=== PATIENT | male | born 1950 | race Caucasian/White ===

== ENCOUNTER 2017-11-05 07:39 | Outpatient (CLI) | payer MEDICARE, OTHER ==
[2017-11-05] MEDS ORDERED: Iopamidol 370 76% 100 ML VIAL ONE (12:03)
--- NOTE | 2017-11-08 17:19 | CT ---
CTA HEART WITH 3D POST PROCESSING: HISTORY: Chest pain. IV CONTRAST: Isovue-370 90 mL. FINDINGS: No coronary artery calcifications are seen. The total calcium score, using the AJ-130 method, is 0. There is good flow without significant stenosis in the left main artery, LAD artery, diagonals, LCX a rtery, obtuse marginal artery, and RCA. Quantitative left ventricular function measurements are as follows: EJECTION FRACTION: 65%. DIASTOLIC VOLUME: 137 mL. END-SYSTOLIC VOLUME: 48 mL. STROKE VOLUME: 89 mL per minute. CARDIAC OUTPUT: 4.6 L per minute. MYOCARDIAL MASS: 164 g. There is normal left ventricular wall motion. The visualized lung valentino are clear. No pleural or p ericardial effusions are seen. There is no evidence of aneurysmal dilatation of the thoracic aorta. There are degenerative changes in the spine. IMPRESSION: Normal examination. POS: ELIZABETH
== END 2017-11-05 07:40 | disposition home or self-care (01) ==
LOC: CT 07:39
PROVIDERS: ATTEND Internal Medicine
DX: R07.9 Chest pain, unspecified (principal)
CPT/HCPCS: 75571; 75574; 82565

== ENCOUNTER → 2018-02-17 | Day surgery (SDC) | payer MEDICARE, OTHER ==
[2018-02-16 12:35] VITALS: BMI 153.0
[~2018-02-17] MED LIST: Bupivacaine/Epinephrine 0.25% 30 ML VIAL ONE; CEFAZOLIN 2 GM/50 ML BAG ONE; Dexamethasone 20 MG/5 ML VIAL ONE; Fentanyl 100 MCG/2 ML VIAL ONE; Glycopyrrolate 0.2 MG/ML 5 ML SYRINGE ONE; Hydrocortisone Sod Succ/PF 100 mg/2 ml Vial ONE; Ketorolac Tromethamine 30 MG/ML VIAL ONE; Lidocaine 1% PF 5 ML VIAL ONE; Midazolam HCl 2 mg/2 ml Vial ONE; Ondansetron PF 4 MG/2 ML Vial ONE; PHENYLEPHRINE-NS 100 MCG/ML 10 ML SYRINGE ONE; PROPOFOL 200 MG/20 ML VIAL ONE; Tamsulosin HCl 0.4 MG CAP ONE; ePHEDrine/0.9% NaCl/PF SYRINGE 50 mg/10 ml ONE
[2018-02-17 07:30] LABS: #Eosinphils 0.2 thou/uL (0.0-0.7); #Lymphocytes 0.8 thou/uL (1.20-3.40); #Monocytes 0.5 thou/uL (0.11-0.59); #Neutrophils 4.6 thou/uL (1.40-6.50); %Basophils 0.4 % (0.0-1.0); %Eosinophils 3.6 % (0.0-10.0); %Lymphocytes 13.3 % (21.0-51.0); %Monocytes 8.7 % (0.0-10.0); Hemoglobin 14.3 g/dL (14.0-18.0); Mean Corpuscular HGB CONC 33.5 g/dL (32.0-36.0); Mean Corpuscular Hemoglobin 29.8 pg (27.0-31.0); Mean Corpuscular Volume 88.8 fL (78.0-98.0); Mean Platelet Volume 7.4 fL (7.4-10.4); Platelet Count 203 thou/uL (130-400); RBC Distribution Width 12.6 % (11.5-14.5); Red Blood Cell (RBC) Count 4.79 mill/uL (4.70-6.10); White Blood Cell (WBC) Count 6.2 thou/uL (4.8-10.8)
[2018-02-17 07:38] LABS: Anion Gap 13 mmol/L (10-20); BUN (Urea Nitrogen) 16 mg/dL (8.4-25.7); Calc. Creatinine Clearance 88 mL/min (70-130); Calcium 9.4 mg/dL (7.8-10.44); Carbon Dioxide 26 mmol/L (23-31); Chloride 107 mmol/L (98-107); Estimated GFR-MDRD 88; Glucose 89 mg/dL (80-115); Sodium 142 mmol/L (136-145)
--- NOTE | 2018-02-17 21:05 | OP ---
DATE OF PROCEDURE: 02/17/2018 PREOPERATIVE DIAGNOSIS: Enlarging and symptomatic right inguinal hernia. POSTOPERATIVE DIAGNOSIS: Enlarging and symptomatic right inguinal hernia, direct. OPERATION PERFORMED: Robotic repair of right-sided direct inguinal hernia with 3D max mesh. ANESTHESIA: General endotracheal. INDICATIONS FOR PROCEDURE: The patient is a 67-year-old white male. He has an enlarging right inguinal hernia and presents this time for repair of this. DESCRIPTION OF OPERATION: Informed consent was obtained. The patient was taken to the operating room, where general endotracheal anesthesia was obtained with the patient in supine position. Avila catheter was placed, abdomen was prepped with ChloraPrep and draped in sterile fashion. Local anesthetic was infiltrated and 11 mm supraumbilical incision was created through which Veress needle was passed into the peritoneal cavity. Pneumoperitoneum was established using carbon dioxide up to a pressure of 15 mmHg. An 11 mm trocar port was passed through the same incision and laparoscopic camera was passed through this port. Under direct vision, two 8 mm robotic ports were placed on either side of midline at the supraumbilical level. Attention was turned internally. The left groin was inspected and found to have no evidence of inguinal hernia. On the right side, there was an obvious direct inguinal hernia. Scissors were utilized to transversely incise the peritoneum several centimeters superior to the hernia. Dissection was carried to the level of the median umbilical ligament. Preperitoneal dissection was carried inferiorly. The pubic tubercle was identified medially. The hernia contents were easily dissected out of the direct hernia sac. The defect was dissected off all surrounding tissue. The epigastric vessels were immediately lateral to the defect. The peritoneum was dissected off the underlying vas deferens and cord structures. Lateral dissection was carried out to allow pocket for mesh placement. A large right 3D max mesh patch was obtained and placed in the preperitoneal space, where it was secured in place with 3 interrupted sutures of 2-0 Vicryl. One suture was placed to the pubis, one to the anterior abdominal wall medial to the epigastric vessels, and one lateral to the epigastric vessels. No suture was placed in the tail. The hernia rested very nicely within the area of dissection. There had been essentially no blood loss at any point during the operation. The peritoneum was closed with a running suture of 3-0 Stratafix. The supraumbilical fascial defect was closed with 0 Vicryl suture using a GraNee needle. The lateral port sites were removed under vision to ensure that there was no bleeding. All ports and instruments were removed under direct vision. Pneumoperitoneum was carefully evacuated. 0.25% Marcaine with epinephrine was infiltrated at each port site. Skin edges approximated with 4-0 Monocryl subcuticular suture. Dermabond was placed externally. There were no complications. The patient tolerated the procedure well. His bladder was filled with 200 mL of sterile saline prior to removing his Avila catheter. He was taken to the recovery room in stable condition. Job ID: [id number]
== END ==
LOC: SDC 06:19
PROVIDERS: ATTEND Specialist
PROC: 0YU50JZ Supplement Right Inguinal Region with Synthetic Substitute, Open Approach (ICD-10-PCS; principal; 2018-02-17)
DX: K40.90 Unilateral inguinal hernia, without obstruction or gangrene, not specified as recurrent (principal); M35.3 Polymyalgia rheumatica; Z79.52 Long term (current) use of systemic steroids; Z79.82 Long term (current) use of aspirin; Z79.899 Other long term (current) drug therapy
CPT/HCPCS: 49505; 80048; 85025; 93005; C1781; 93010; J0131; J1100; J1720; J1885; J2001; J2250; J2405; J2704; J3010

== ENCOUNTER 2021-06-16 19:30 | Outpatient (CLI) | payer MEDICARE, OTHER | END 2021-06-16 19:31 | disposition home or self-care (01) | LOC: SLEEPLAB 19:30 | PROVIDERS: ATTEND Internal Medicine | DX: G47.33 Obstructive sleep apnea (adult) (pediatric) (principal); R53.83 Other fatigue; K21.9 Gastro-esophageal reflux disease without esophagitis; F32.A Depression, unspecified; G47.31 Primary central sleep apnea | CPT/HCPCS: 95810 ==

== ENCOUNTER 2021-07-11 19:30 | Outpatient (CLI) | payer MEDICARE, OTHER | END 2021-07-11 19:31 | disposition home or self-care (01) | LOC: SLEEPLAB 19:30 | PROVIDERS: ATTEND Internal Medicine | DX: G47.33 Obstructive sleep apnea (adult) (pediatric) (principal); R06.83 Snoring; G47.10 Hypersomnia, unspecified; E66.9 Obesity, unspecified; G47.31 Primary central sleep apnea; Z68.24 Body mass index [BMI] 24.0-24.9, adult | CPT/HCPCS: 95811 ==

== ENCOUNTER → 2022-03-10 | Day surgery (SDC) | payer MEDICARE, OTHER ==
[~2022-03-10] MED LIST changes: -Bupivacaine/Epinephrine 0.25% 30 ML VIAL ONE; -CEFAZOLIN 2 GM/50 ML BAG ONE; -Dexamethasone 20 MG/5 ML VIAL ONE; -Fentanyl 100 MCG/2 ML VIAL ONE; -Glycopyrrolate 0.2 MG/ML 5 ML SYRINGE ONE; -Hydrocortisone Sod Succ/PF 100 mg/2 ml Vial ONE; -Ketorolac Tromethamine 30 MG/ML VIAL ONE; -Lidocaine 1% PF 5 ML VIAL ONE; +Lidocaine Jelly 2% Urojet 10 ML ONE; -Midazolam HCl 2 mg/2 ml Vial ONE; -Ondansetron PF 4 MG/2 ML Vial ONE; -PHENYLEPHRINE-NS 100 MCG/ML 10 ML SYRINGE ONE; -PROPOFOL 200 MG/20 ML VIAL ONE; -Tamsulosin HCl 0.4 MG CAP ONE; -ePHEDrine/0.9% NaCl/PF SYRINGE 50 mg/10 ml ONE
== END | disposition home or self-care (01) ==
LOC: ENDO/OP 13:47
PROVIDERS: ATTEND Internal Medicine Gastroenterology
DX: K21.9 Gastro-esophageal reflux disease without esophagitis (principal)
CPT/HCPCS: 91010; 91034; J2001

== ENCOUNTER 2022-06-24 12:36 | Outpatient (CLI) | payer MEDICARE, OTHER | END 2022-06-24 12:37 | disposition home or self-care (01) | LOC: RAD 12:36 | PROVIDERS: ATTEND Internal Medicine Gastroenterology | DX: R11.2 Nausea with vomiting, unspecified (principal); K22.4 Dyskinesia of esophagus | CPT/HCPCS: 74220 ==